=== PATIENT | male | born 1985 | race African-American/Black ===

== ENCOUNTER 2018-11-27 15:45 | Inpatient (IN) | payer OTHER ==
[~2018-11-27] VITALS: Ht 190.5 cm; Wt 76.0 kg
[2018-11-27] MEDS ORDERED: NS 500 ML IV ONE (16:15)
[2018-11-27 16:44] LABS: VENOUS BASE EXCESS -4.3 (-2.0-2.0); VENOUS HCO3 22.2 MEQ/L (23.0-27.0); VENOUS O2 SATURATION 93.7 % (60.0-80.0); VENOUS PARTIAL PRESSURE CO2 45.7 mmHg (38.0-50.0); VENOUS PARTIAL PRESSURE O2 77.7 mmHg (30.0-50.0); VENOUS PH 7.304 UNITS (7.330-7.430); VENOUS STANDARD HCO3 20.9 MEQ/L; VENOUS TOTAL CO2 23.6 MEQ/L (24.0-28.0)
[2018-11-27 16:44] LABS: BASO % 0.1 % (0.0-1.0); EOS % 0.1 % (0.0-3.0); HEMATOCRIT 43.7 % (42.0-52.0); HEMOGLOBIN 15.2 g/dl (13.5-17.5); LYMPH # 1.1 10^3/uL (1.5-4.5); LYMPH % 7.2 % (24.0-44.0); MEAN CORPUSCULAR HEMOGLOBIN 30.8 pg (27.0-33.0); MEAN CORPUSCULAR HGB CONC 34.8 g/dl (32.0-36.5); MEAN CORPUSCULAR VOLUME 88.5 fl (80.0-96.0); MONO # 0.8 10^3/uL (0.0-0.8); MONO % 5.3 % (0.0-5.0); NEUTROPHILS % 86.7 % (36.0-66.0); PLATELET COUNT, AUTOMATED 225 10^3/uL (150-450); RED BLOOD COUNT 4.94 10^6/uL (4.30-6.10)
[2018-11-27] MEDS ORDERED: NS 1,000 ML IV SCH (17:00)
--- NOTE | 2018-11-27 17:06 | REP ---
Chest two views HISTORY: Overdose Comparison: None The lungs are clear. The heart is normal in size. The pulmonary vasculature is normal in appearance. T the bony structure is intact. There is scoliosis of the upper thoracic spine convex to the left and mid and lower thoracic spine convex to the right. convex to the IMPRESSION: No acute disease. Electronically Signed by Cristian Gracia MD 11/27/2018 04:58 P
[2018-11-27] MEDS ORDERED: LORazepam 2 MG/ML VIAL (J2060) IV STA (17:09)
--- NOTE | 2018-11-27 17:14 | REP ---
KUB, ONE VIEW: HISTORY: Drug overdose. Air is present in small and large intestine. There are no air fluid levels or dilated loops of intestine. There is no radiopaque foreign body. IMPRESSION: Nonspecific bowel gas pattern. Electronically Signed by Cristian Gracia MD 11/27/2018 05:27 P
[2018-11-27 17:33] LABS: ACETAMINOPHEN LEVEL < 2.0 UG/ML (10.0-30.0); ALBUMIN 3.8 GM/DL (3.2-5.2); ALT/SGPT 24 U/L (12-78); BILIRUBIN,DIRECT 0.1 MG/DL (0.0-0.2); BILIRUBIN,TOTAL 0.4 MG/DL (0.2-1.0); BLOOD UREA NITROGEN 15 MG/DL (7-18); CALCIUM LEVEL 8.3 MG/DL (8.5-10.1); CARBON DIOXIDE LEVEL 25 MEQ/L (21-32); CHLORIDE LEVEL 109 MEQ/L (98-107); CPK CREATINE PHOSPHOKINASE 409 U/L (39-308); CREATININE FOR GFR 1.46 MG/DL (0.70-1.30); ETHYL ALCOHOL (ETHANOL) < 0.003 % (0.000-0.010); GLOMERULAR FILTRATION RATE > 60.0 (>60); GLUCOSE, FASTING 91 MG/DL (70-100); SALICYLATE LEVEL < 1.7 MG/DL (5.0-30.0); SODIUM LEVEL 143 MEQ/L (136-145); TOTAL PROTEIN 6.5 GM/DL (6.4-8.2)
--- NOTE | 2018-11-27 18:15 | ECGEPIP ---
Stationary ECG Study [facility] - ED Test Date: 2018-11-27 Pat Name: JOE HARRELL Department: Room: - Gender: M [employer] Service Manager: sb : 1985 Requested By: HEENA Bundy Order Number: [id number] Reading MD: Carlos Gleason Measurements Intervals [place] Rate: 84 P: MO: 0 QRS: 34 QRSD: 82 T: 63 QT: 382 QTc: 452 Interpretive Statements REGULAR SUPRAVENTRICULAR RHYTHM WITH ARTIFACT Electronically Signed On 11-27-2018 18:14:57 EST by Carlos Gleason
[2018-11-27] MEDS ORDERED: CHARCOAL ACTIVATED LIQUID 25 GM/120 ML BTL PO ONE (18:30)
[2018-11-27 21:04] LABS: AMPHETAMINES LEVEL URINE NEGATIVE (NEGATIVE); BARBITURATES URINE NEGATIVE (NEGATIVE); BENZODIAZEPINES URINE NEGATIVE (NEGATIVE); CANNABINOIDS URINE NEGATIVE (NEGATIVE); COCAINE METABOLITE URINE NEGATIVE (NEGATIVE); METHADONE URINE NEGATIVE (NEGATIVE); OPIATES URINE NEGATIVE (NEGATIVE); PHENCYCLIDINE URINE NEGATIVE (NEGATIVE)
[2018-11-27 21:10] VITALS: BP 135/74
[2018-11-27] MEDS ORDERED: LORazepam 2 MG/ML VIAL (J2060) IV PRN (22:15)
[2018-11-27] MEDS: NS 1,000 ML IV SCH (23:45)
[2018-11-28] VITALS: BP 132/78
[2018-11-28 04:00] VITALS: BP 138/82
[2018-11-28] MEDS ORDERED: CHARCOAL ACTIVATED LIQUID 25 GM/120 ML BTL PO PRN (05:30)
[2018-11-28] MEDS: CHARCOAL ACTIVATED LIQUID 25 GM/120 ML BTL PO SCH ×3 (06:05→12:56)
[2018-11-28] MEDS: ACETAMINOPHEN TAB 650MG DOSE (2X325MG) PO PRN ×2 (06:05→20:39)
[2018-11-28 06:20] LABS: HEMATOCRIT 41.9 % (42.0-52.0); HEMOGLOBIN 14.3 g/dl (13.5-17.5); MEAN CORPUSCULAR HEMOGLOBIN 30.8 pg (27.0-33.0); MEAN CORPUSCULAR HGB CONC 34.1 g/dl (32.0-36.5); MEAN CORPUSCULAR VOLUME 90.3 fl (80.0-96.0); PLATELET COUNT, AUTOMATED 194 10^3/uL (150-450); RED BLOOD COUNT 4.64 10^6/uL (4.30-6.10); WHITE BLOOD COUNT 7.5 10^3/uL (4.0-10.0)
[2018-11-28 06:49] LABS: BLOOD UREA NITROGEN 10 MG/DL (7-18); CALCIUM LEVEL 7.9 MG/DL (8.5-10.1); CARBON DIOXIDE LEVEL 25 MEQ/L (21-32); CHLORIDE LEVEL 110 MEQ/L (98-107); CREATININE FOR GFR 1.41 MG/DL (0.70-1.30); GLOMERULAR FILTRATION RATE > 60.0 (>60); GLUCOSE, FASTING 77 MG/DL (70-100); POTASSIUM SERUM 3.5 MEQ/L (3.5-5.1); SODIUM LEVEL 141 MEQ/L (136-145)
[2018-11-28 08:00] VITALS: BP 131/75
--- NOTE | 2018-11-28 08:02 | ECGEPIP ---
Stationary ECG Study [facility] - ED Test Date: 2018-11-27 Pat Name: JOE HARRELL Department: Room: [place] [address] Gender: M Cost Engineer: ANKIT : 1985 Requested By: STONEY Lazo Order Number: [id number] Reading MD: Carlos Gleason Measurements Intervals [place] Rate: 79 P: 86 PA: 187 QRS: 37 QRSD: 97 T: 71 QT: 374 QTc: 431 Interpretive Statements SINUS RHYTHM NONSPECIFIC T-WAVE ABNORMALITY BASELINE ARTIFACT AFFECTS INTERPRETATION SIMILAR TO PRIOR ON SAME DATE Electronically Signed On 11-28-2018 8:02:16 EST by Carlos Gleason
[2018-11-28] MEDS: NS 1,000 ML IV SCH ×2 (08:30→22:48)
[2018-11-28] MEDS: ENOXAPARIN 40 MG/0.4 ML SYRINGE (J1650) SC SCH (08:30)
[2018-11-28] MEDS ORDERED: INFLUENZA QUADRIVALENT PF VACCINE 0.5ML SYRINGE (90686) IM ONE (09:00)
--- NOTE | 2018-11-28 09:11 | IPNPDOC ---
Date Seen The patient was seen on 11/28/18. Progress Note SUBJECTIVE: No bowel movement overnight despite q4hrs activated charcoal. Pt lying in bed with 2 correctionals officers in the room. He denies any confusion, headache, changes in vision, restlessness, anxiety, nausea, vomiting, abdominal pain, chest pain, pressure, tightness, lightheadedness, or dizziness. no change in appetite, no dysuria, urgency, frequency, or flank pain. no hematuria. Per poison control, admit for 24hr observation and q4hrs activated charcoal until bowel movement. OBJECTIVE PHYSICAL EXAMINATION: VITAL SIGNS: Please see below. GENERAL: Male appears his stated age. normal affect. no facial asymmetry. speaks in full sentences, in no respiratory distress. lying supine in bed HEENT: no icterus, pallor, cyanosis, PERRL, EOMI no JVD, cervical LAD, or thyromegaly CARDIOVASCULAR: RRR, S1S2, no murmurs noted RESPIRATORY: CTAB AEBE no wheezing rales, or rhonchi. no adventitious breath sounds ABDOMINAL:(+) normoactive bowel sounds, nondistended, nontender, no HSM EXTREMITIES: no cyanosis, clubbing, or pitting edema NEUROLOGICAL: AAOx3, normal fluent speech, no facial asymmetry. no sensory changes. DTRs intact, 5/5 motor function x 4 extremities. negative babinski b/l. normal finger to nose testing. LABORATORY DATA: PLS SEE BELOW IMAGING STUDIES: ASSESSMENT AND PLAN: 33 Y/O inmate from the correctionals facility brought in by ambulance due to suspected intentional overdose of ?K7, s/p activated charcoal q4hrs, admitted as recommended by poison control for 24hrs observation until pt has a bowel movement. Intentional Drug Overdose: per poison control, pt is to beobserved for 24hrs until bowel movement with activated charcoal q4hrs. DVT prophylaxis: ordered Code status: Full code Diet: regular Disposition: psychiatric referral after medically stable. VS, I&O, 24H, Fishbone Vital Signs/I&O Vital Signs Date Time Temp Pulse Resp B/P (MAP) Pulse Ox O2 Delivery O2 Flow Rate FiO2 11/28/18 08:00 99.4 98 18 131/75 (93) 99 11/27/18 20:30 Room Air I&O- Last 24 Hours up to 6 AM 11/28/18 06:00 Intake Total 2280 ml Output Total 650 ml Balance 1630 ml Laboratory Data 24H LABS Laboratory Tests 2 11/27/18 16:31: Lactic Acid Level 4.2*H 11/27/18 16:33: Immature Granulocyte % (Auto) 0.6, White Blood Count 15.0H, Red Blood Count 4. 94, Hemoglobin 15.2, Hematocrit 43.7, Mean Corpuscular Volume 88.5, Mean Corpuscular Hemoglobin 30.8, Mean Corpuscular Hemoglobin Concent 34.8, Red Cell Distribution Width 12.3, Platelet Count 225, Neutrophils (%) (Auto) 86.7H, Lymphocytes (%) (Auto) 7.2L, Monocytes (%) (Auto) 5.3H, Eosinophils (%) (Auto) 0.1, Basophils (%) (Auto) 0.1, Neutrophils # (Auto) 13.0H, Lymphocytes # (Auto) 1.1L, Monocytes # (Auto) 0.8, Eosinophils # (Auto) 0.0, Basophils # (Auto) 0.0, Nucleated Red Blood Cells % (auto) 0.0, Anion Gap 9, Glomerular Filtration Rate > 60.0, Calcium Level 8.3L, Aspartate Amino Transf (AST/SGOT) 21, Alanine Aminotransferase (ALT/SGPT) 24, Alkaline Phosphatase 80, Total Bilirubin 0.4, D irect Bilirubin 0.1, Total Creatine Kinase 409H, Total Protein 6.5, Albumin 3.8, Albumin/Globulin Ratio 1.41, Thyroid Stimulating Hormone (TSH) 3.410, Salicylates Level < 1.7L, Acetaminophen Level < 2.0L, Ethyl Alcohol Level < 0.003 11/27/18 16:36: Blood Gas Bicarbonate Standard 20.9, Venous Blood pH 7.304L, Venous Blood Partial Pressure CO2 45.7, Venous Blood Partial Pressure O2 77.7H, Venous Blood Total Carbon Dioxide 23.6L, Venous Blood HCO3 22.2L, Venous Blood Oxygen Sat uration 93.7H, Venous Blood Base Excess -4.3L 11/27/18 20:30: Urine Amphetamines Screen NEGATIVE, Urine Benzodiazepines Screen NEGATIVE, Urine Opiates Screen NEGATIVE, Urine Methadone Screen NEGATIVE, Urine Barbiturates Screen NEGATIVE, Urine Phencyclidine Screen NEGATIVE, Urine Cocaine Metabolite Screen NEGATIVE, Urine Cannabinoids Screen NEGATIVE 11/27/18 21:51: Lactic Acid Followup at 4 Hours 3.5*H 11/28/18 05:51: Nucleated Red Blood Cells % (auto) 0.0, Anion Gap 6L, Glomerular Filtration Rate > 60.0, Lactic Acid Level 2.1*H, Blood Urea Nitrogen 10, Creatinine 1.41H, Sodium Level 141, Potassium Level 3.5, Chloride Level 110H, Carbon Dioxide Level 25, Calcium Level 7.9L CBC/BMP Laboratory Tests 11/27/18 16:33 Red Blood Count 4.94, Mean Corpuscular Volume 88.5, Mean Corpuscular Hemoglobin 30.8, Mean Corpuscular Hemoglobin Concent 34.8, Red Cell Distribution Width 12.3, Neutrophils (%) (Auto) 86.7 H, Lymphocytes (%) (Auto) 7.2 L, Monocytes (%) (Auto) 5.3 H, Eosinophils (%) (Auto) 0.1, Basophils (%) (Auto) 0.1, Neutrophils # (Auto) 13.0 H, Lymphocytes # (Auto) 1.1 L, Monocytes # (Auto) 0.8, Eosinophils # (Auto) 0.0, Basophils # (Auto) 0.0 11/28/18 05:51 Red Blood Count 4.64, Mean Corpuscular Volume 90.3, Mean Corpuscular Hemoglobin 30.8, Mean Corpuscular Hemoglobin Concent 34.1, Red Cell Distribution Width 12.4, Calcium Level 7.9 L Microbiology Microbiology 11/27/18 Blood Culture, Received Pending 11/27/18 Blood Culture, Received Pending JUDY GRAY MD Nov 28, 2018 09:11
[2018-11-28] MEDS ORDERED: NS 1,000 ML IV ONE ×3 (09:30→21:30)
--- NOTE | 2018-11-28 10:30 | HPE ---
DATE OF ADMISSION: 11/27/2018 ATTENDING PHYSICIAN: Rose Flynn MD CHIEF COMPLAINT: Drug overdose. HISTORY OF PRESENT ILLNESS: The patient is a 33-year-old -[place] male, came from the longterm with drug overdose. History is provided by officer from the longterm, as well as the staff in the emergency room (ER). It seemed like he is suppose to transfer from one longterm to another place. However, when the officer checked him, he was found to have a lot of K2, which synthetic marijuana in his mouth and also he told the officer he swallowed a bunch of them, the K2, so he was brought to the emergency room (ER) here for further management. In the emergency room (ER), his initially work up was not significant. He was given IV hydration, as well as activated charcoal per poison control center. The medicine service called for admission. REVIEW OF SYSTEMS: Not available since does not want to answer questions. PAST MEDICAL HISTORY: None. PAST SURGICAL HISTORY None. MEDICATIONS: None. ALLERGIES: No known drug allergies. FAMILY HISTORY: Noncontributory. SOCIAL HISTORY: He is an active smoker, but does not have any alcohol abuse, but he used marijuana and he is a full code. He does not take med routinely. PHYSICAL EXAMINATION: VITAL SIGNS: Temperature is 98.4, heart rate is 85, respiratory rate 18, blood pressure 135/79, oxygen saturation 100% on room air. GENERAL: He is awake, alert, oriented times 3. He is not in acute distress. HEENT: Atraumatic. Pupils equal, round and reactive to light. No jaundice. Extraocular muscles intact. Ears, nose and throat: Normal. Mouth: Mucosa normal. NECK: No jugular venous distension (JVD). LUNGS: Clear, no wheeze, no crackles. HEART: S1, S2 regular. No murmur. ABDOMEN: Soft. Bowel sounds positive. Nontender. LOWER EXTREMITIES: No edema in bilateral lower extremities. NEUROLOGICAL: Nonfocal. SKIN: No rash. PSYCHOLOGICAL: No acute psychosis. DIAGNOSTIC LABORATORY STUDY INCLUDED THE FOLLOWING: CBC and differential showed WBC)15, hemoglobin and hematocrit 15/43, platelets 225. Sodium is 143, potassium is 4.0, chloride is 109, bicarbonate 25, BUN 15, creatinine 1.46 and glucose is 91. Lactic acid is 4.2. Toxicity screen negative for alcohol, acetaminophen, as well as salicylates. CT of chest, as well as CT abdomen were normal. IMPRESSION: 1. Intentional drug abuse without suicidal attempt. 2. Acute renal injury and dehydration. PLAN: The patient will be admitted to the PCU for observation and will treat him with supportively including IV hydration. Will give him activated charcoal per poison control's recommendation. MTDD
[2018-11-28 12:00] VITALS: BP 157/94
[2018-11-28 13:03] LABS: BLOOD UREA NITROGEN 7 MG/DL (7-18); CALCIUM LEVEL 7.8 MG/DL (8.5-10.1); CARBON DIOXIDE LEVEL 24 MEQ/L (21-32); CHLORIDE LEVEL 111 MEQ/L (98-107); CPK CREATINE PHOSPHOKINASE 2717 U/L (39-308); CREATININE FOR GFR 1.15 MG/DL (0.70-1.30); GLOMERULAR FILTRATION RATE > 60.0 (>60); GLUCOSE, FASTING 92 MG/DL (70-100); POTASSIUM SERUM 3.3 MEQ/L (3.5-5.1); SODIUM LEVEL 143 MEQ/L (136-145)
[2018-11-28] MEDS ORDERED: NS 1,000 ML IV SCH (13:30)
[2018-11-28] MEDS ORDERED: POTASSIUM CHLORIDE 10 MEQ SR TABLET PO ONE ×2 (15:00→21:30)
[2018-11-28 16:00] VITALS: BP 143/85
[2018-11-28 18:58] LABS: BLOOD UREA NITROGEN 6 MG/DL (7-18); CALCIUM LEVEL 7.8 MG/DL (8.5-10.1); CARBON DIOXIDE LEVEL 25 MEQ/L (21-32); CHLORIDE LEVEL 110 MEQ/L (98-107); CPK CREATINE PHOSPHOKINASE 2772 U/L (39-308); CREATININE FOR GFR 1.25 MG/DL (0.70-1.30); GLOMERULAR FILTRATION RATE > 60.0 (>60); GLUCOSE, FASTING 90 MG/DL (70-100); POTASSIUM SERUM 3.4 MEQ/L (3.5-5.1); SODIUM LEVEL 144 MEQ/L (136-145)
[2018-11-28 20:00] VITALS: BP 135/90
[2018-11-29] VITALS (7 sets, daily range): BP systolic 130–141; BP diastolic 78–84
[2018-11-29 00:32] LABS: BLOOD UREA NITROGEN 5 MG/DL (7-18); CALCIUM LEVEL 7.7 MG/DL (8.5-10.1); CARBON DIOXIDE LEVEL 24 MEQ/L (21-32); CHLORIDE LEVEL 111 MEQ/L (98-107); CREATININE FOR GFR 1.04 MG/DL (0.70-1.30); GLOMERULAR FILTRATION RATE > 60.0 (>60); GLUCOSE, FASTING 100 MG/DL (70-100); POTASSIUM SERUM 3.4 MEQ/L (3.5-5.1); SODIUM LEVEL 144 MEQ/L (136-145)
[2018-11-29] MEDS: NS 1,000 ML IV SCH (03:55)
[2018-11-29] MEDS ORDERED: MAG SULF 1GM/100ML (MAG RUN) 1 GM in APPROPRIATE DILUENT 1 EA IV ONE (05:30)
[2018-11-29 07:20] LABS: BLOOD UREA NITROGEN 4 MG/DL (7-18); C REACTIVE PROTEIN QUANTITATIV 1.34 MG/DL (0.00-0.30); CALCIUM LEVEL 7.7 MG/DL (8.5-10.1); CARBON DIOXIDE LEVEL 27 MEQ/L (21-32); CHLORIDE LEVEL 111 MEQ/L (98-107); CPK CREATINE PHOSPHOKINASE 2730 U/L (39-308); CREATININE FOR GFR 1.04 MG/DL (0.70-1.30); GLOMERULAR FILTRATION RATE > 60.0 (>60); GLUCOSE, FASTING 96 MG/DL (70-100); MAGNESIUM LEVEL 1.8 MG/DL (1.8-2.4); POTASSIUM SERUM 3.4 MEQ/L (3.5-5.1); SODIUM LEVEL 144 MEQ/L (136-145)
[2018-11-29] MEDS ORDERED: POTASSIUM CHLORIDE 10 MEQ SR TABLET PO SCH (09:00)
[2018-11-29] MEDS: ENOXAPARIN 40 MG/0.4 ML SYRINGE (J1650) SC SCH ×2 (09:00→09:23)
--- NOTE | 2018-11-29 10:50 | IPNPDOC ---
Date Seen The patient was seen on 11/29/18. Progress Note SUBJECTIVE:Had one bowel movement overnight s/p q4hrs activated charcoal. Pt lying in bed with 2 correctionals officers in the room. He denies any confusion, headache, changes in vision, restlessness, anxiety, nausea, vomiting, abdominal pain, chest pain, pressure, tightness, lightheadedness, or dizziness. no change in appetite, no dysuria, urgency, frequency, or flank pain. no hematuria. Per poison control, admit for 24hr observation and q4hrs activated charcoal until bowel movement and monitor for changes in blood pressure, tremulousness OBJECTIVE PHYSICAL EXAMINATION: VITAL SIGNS: Please see below. GENERAL: Male appears his stated age. normal affect. no facial asymmetry. speaks in full sentences, in no respiratory distress. lying supine in bed HEENT: no icterus, pallor, cyanosis, PERRL, EOMI no JVD, cervical LAD, or thyromegaly CARDIOVASCULAR: RRR, S1S2, no murmurs noted RESPIRATORY: CTAB AEBE no wheezing rales, or rhonchi. no adventitious breath sounds ABDOMINAL:(+) normoactive bowel sounds, nondistended, nontender, no HSM EXTREMITIES: no cyanosis, clubbing, or pitting edema NEUROLOGICAL: AAOx3, normal fluent speech, no facial asymmetry. no sensory saranya nges. DTRs intact, 5/5 motor function x 4 extremities. negative babinski b/l. normal finger to nose testing. LABORATORY DATA: PLS SEE BELOW Toxicity screen negative for alcohol, acetaminophen, as well as salicylates. CT of chest, as well as CT abdomen were normal. ASSESSMENT AND PLAN: The patient is a 33-year-old -Aust[place] male, came from the group home with drug overdose. History is provided by officer from the group home, as well as the staff in the emergency room (ER). It seemed like he is suppose to transfer from one group home to another place. However, when the officer checked him, he was found to have a lot of K2, which synthetic marijuana in his mouth and also he told the officer he swallowed a bunch of them, the K2, so he was brought to the emergency room (ER) here for further management. In the emergency room (ER), his initially work up was not significant. He was given IV hydration, as well as activated charcoal per poison control center. The medicine service called for admission.Per poison control , Drug ingestion was with K2 for synthetic cannabinoids with patient being neurologically stimulated on admission with tremors and fasciculations rx: benzo, ativan, valium, versed. No tachycardia, htn, hypotension, bradycardia. Pt had a tmax of 100.8 overnight. creatinine 1.46-1.4. Intentional Drug Overdose with K2 synthetic marijuana: per poison control, pt is to beobserved for 24hrs until bowel movement with activated charcoal q4hrs. monitoring for changes in blood pressure, tremors. Acute Kidney injury: improved with hydration Rhabdomyolysis: on iv fluids strict i/o serial ck Hypokalemia refused po kdur. iv krun x 3. DVT prophylaxis: ordered Code status: Full code Diet: regular Disposition: psychiatric referral after medically stable. [facility] NAME: GUNNAR HARRELL: 1985MED REC#: [id number] ROOM: [facility]#: [id number]: AP GEORGES MD PATIENT STATUS: ADM INoCosign: REPORT #: [id number] : cc: [~ rep ct ivnm] HISTORY & PHYSICAL EXAMINATIONPrinted:[~ rep prt dt last] [~ rep prt tm last] [employer]Page PAGE \* MERGE[employer] 2 of [employer] \* MERGEFORMAT [address] [place] [address] VS, I&O, 24H, Fishbone Vital Signs/I&O Vital Signs Date Time Temp Pulse Resp B/P (MAP) Pulse Ox O2 Delivery O2 Flow Rate FiO2 11/29/18 04:00 99.3 84 18 135/80 (98) 97 11/27/18 20:30 Room Air I&O- Last 24 Hours up to 6 AM 11/29/18 06:00 Intake Total 7010 ml Output Total 700 ml Balance 6310 ml Laboratory Data 24H LABS Laboratory Tests 2 11/28/18 05:51: Nucleated Red Blood Cells % (auto) 0.0, Anion Gap 6L, Glomerular Filtration Rate > 60.0, Lactic Acid Level 2.1*H, Blood Urea Nitrogen 10, Creatinine 1.41H, Sodiu m Level 141, Potassium Level 3.5, Chloride Level 110H, Carbon Dioxide Level 25, Calcium Level 7.9L 11/28/18 10:22: Lactic Acid Followup at 4 Hours 3.3*H 11/28/18 11:49: Urine Color STRAW, Urine Appearance CLEAR, Urine pH 5.0, Urine Specific [place] 1.012, Urine Protein 1+H, Urine Glucose (UA) NEGATIVE, Urine Ketones NEGATIVE, Urine Blood 1+H, Urine Nitrite NEGATIVE, Urine Bilirubin NEGATIVE, Urine Urobilinogen 0.2, Urine Leukocyte Esterase NEGATIVE, Urine WBC (Auto) 2, Urine RBC (Auto) 4H, Urine Hyaline Casts (Auto) 0, Urine Bacteria (Auto) NEGATIVE, Ur ine Squamous Epithelial Cells 0, Urine Mucus (Auto) SMALL, Urine Sperm (Auto) 11/28/18 12:02: Anion Gap 8, Glomerular Filtration Rate > 60.0, Lactic Acid Level 1.7, Blood Urea Nitrogen 7, Creatinine 1.15, Sodium Level 143, Potassium Level 3.3L, Chloride Level 111H, Carbon Dioxide Level 24, Calcium Level 7.8L, Total Creatine Kinase 2717#H 11/28/18 17:59: Anion Gap 9, Glomerular Filtration Rate > 60.0, Blood Urea Nitrogen 6L, Creatinine 1.25, Sodium Level 144, Potassium Level 3.4L, Chloride Level 110H, Carbon Dioxide Level 25, Calcium Level 7.8L, Total Creatine Kinase 2772H 11/28/18 23:53: Anion Gap 9, Glomerular Filtration Rate > 60.0, Blood Urea Nitrogen 5L, Creatinine 1.04, Sodium Level 144, Potassium Level 3.4L, Chloride Level 111H, Carbon Dioxide Level 24, Calcium Level 7.7L 11/29/18 04:26: CBC/BMP Laboratory Tests 11/28/18 05:51 Red Blood Count 4.64, Mean Corpuscular Volume 90.3, Mean Corpuscular Hemoglobin 30.8, Mean Corpuscular Hemoglobin Concent 34.1, Red Cell Distribution Width 12.4, Calcium Level 7.9 L 11/28/18 12:02 Calcium Level 7.8 L 11/28/18 17:59 Calcium Level 7.8 L 11/28/18 23:53 Calcium Level 7.7 L Microbiology Microbiology 11/27/18 Blood Culture - Preliminary, Resulted No growth after 24 hours . All specim... 2/21/19 Blood Culture - Preliminary, Resulted No growth after 24 hours . All specim... JUDY GRAY MD Nov 29, 2018 05:33
[2018-11-29] MEDS: KCL 10MEQ/100ML SWI (KRUN) 10 MEQ in APPROPRIATE DILUENT 1 EA IV SCH ×3 (11:02→13:05)
[2018-11-29 14:34] LABS: BLOOD UREA NITROGEN 4 MG/DL (7-18); CALCIUM LEVEL 8.3 MG/DL (8.5-10.1); CARBON DIOXIDE LEVEL 24 MEQ/L (21-32); CHLORIDE LEVEL 107 MEQ/L (98-107); CREATININE FOR GFR 1.15 MG/DL (0.70-1.30); GLOMERULAR FILTRATION RATE > 60.0 (>60); GLUCOSE, FASTING 133 MG/DL (70-100); POTASSIUM SERUM 3.6 MEQ/L (3.5-5.1); SODIUM LEVEL 142 MEQ/L (136-145)
[2018-11-29 18:52] LABS: BLOOD UREA NITROGEN 6 MG/DL (7-18); CALCIUM LEVEL 8.2 MG/DL (8.5-10.1); CARBON DIOXIDE LEVEL 25 MEQ/L (21-32); CHLORIDE LEVEL 106 MEQ/L (98-107); CREATININE FOR GFR 1.21 MG/DL (0.70-1.30); GLOMERULAR FILTRATION RATE > 60.0 (>60); GLUCOSE, FASTING 125 MG/DL (70-100); POTASSIUM SERUM 3.4 MEQ/L (3.5-5.1); SODIUM LEVEL 140 MEQ/L (136-145)
[2018-11-29] MEDS: ACETAMINOPHEN TAB 650MG DOSE (2X325MG) PO PRN (21:17)
[2018-11-30 00:36] LABS: BLOOD UREA NITROGEN 6 MG/DL (7-18); CALCIUM LEVEL 8.3 MG/DL (8.5-10.1); CARBON DIOXIDE LEVEL 28 MEQ/L (21-32); CHLORIDE LEVEL 106 MEQ/L (98-107); CREATININE FOR GFR 1.13 MG/DL (0.70-1.30); GLOMERULAR FILTRATION RATE > 60.0 (>60); GLUCOSE, FASTING 91 MG/DL (70-100); POTASSIUM SERUM 3.5 MEQ/L (3.5-5.1); SODIUM LEVEL 141 MEQ/L (136-145)
[2018-11-30 04:00] VITALS: BP 135/85
[2018-11-30 05:41] LABS: HEMATOCRIT 40.9 % (42.0-52.0); HEMOGLOBIN 14.6 g/dl (13.5-17.5); MEAN CORPUSCULAR HEMOGLOBIN 30.8 pg (27.0-33.0); MEAN CORPUSCULAR HGB CONC 35.7 g/dl (32.0-36.5); MEAN CORPUSCULAR VOLUME 86.3 fl (80.0-96.0); PLATELET COUNT, AUTOMATED 211 10^3/uL (150-450); RED BLOOD COUNT 4.74 10^6/uL (4.30-6.10)
[2018-11-30 06:06] LABS: BLOOD UREA NITROGEN 5 MG/DL (7-18); CALCIUM LEVEL 8.1 MG/DL (8.5-10.1); CARBON DIOXIDE LEVEL 28 MEQ/L (21-32); CHLORIDE LEVEL 105 MEQ/L (98-107); GLOMERULAR FILTRATION RATE > 60.0 (>60); GLUCOSE, FASTING 91 MG/DL (70-100); POTASSIUM SERUM 3.5 MEQ/L (3.5-5.1); SODIUM LEVEL 140 MEQ/L (136-145)
[2018-11-30 07:37] LABS: CPK CREATINE PHOSPHOKINASE 2323 U/L (39-308)
[2018-11-30] MEDS ORDERED: NS 1,000 ML IV ONE ×2 (07:45→10:00)
[2018-11-30 08:00] VITALS: BP 133/76
[2018-11-30] MEDS: ENOXAPARIN 40 MG/0.4 ML SYRINGE (J1650) SC SCH (08:47)
--- NOTE | 2018-11-30 09:34 | DS.PDOC ---
Discharge Summary General Date of Admission Nov 29, 2018 at 05:25 Date of Discharge 11/30/18 DISCHARGE TO CORRECTIONAL FACILITY IF CLEARED BY DR. JUDITH RODRIGUES, PSYCHIATRIST Discharge Summary DISCHARGE DIAGNOSES: INTENTIONAL DRUG OVERDOSE WITH SYNTHETIC MARIJUANA K2 ACUTE RHABDOMYOLYSIS ACUTE KIDNEY INJURY DUE TO ACUTE RHABDOMYOLYSIS SUBSTANCE ABUSE WITH MARIJUANA HYPOKALEMIA REFUSED ORAL POTASSIUM MEDICAL NONCOMPLIANCE WITH POTASSIUM SUPPLEMENTS DISCHARGE MEDICATIONS: NONE DISCHARGE INSTRUCTIONS: REFRAIN FROM RECREATIONAL DRUG USE DISPOSITION: FEBRUARY DISCHARGE TO CORRECTIONAL FACILITY IF CLEARED BY PSYCHIATRIST DR. RODRIGUES. HISTORY OF PRESENTING ILLNESS: The patient is a 33-year-old -Greek male, [facility] with [facility] overdose. History is provided by officer from the [facility], as well as the staff in the emergency room (ER). It seemed like he is suppose to transfer from one [facility] to another place. However, when the officer checked him, he was found to have a lot of K2, which synthetic marijuana in his mouth and also he told the officer he swallowed a bunch of them, the K2, so he was brought to the emergency room (ER) here for further management. In the emergency room (ER), his initially work up was not significant. He was given IV hydration, as well as activated charcoal per poison control center. The medicine service called for admission.Per poison control , Drug ingestion was with K2 for synthetic cannabinoids with patient being neurologically stimulated on admission with tremors and fasciculations rx: benzo, ativan, valium, versed. No tachycardia, htn, hypotension, bradycardia. Pt had a tmax of 100.8 overnight. creatinine 1.46-1.4. HOSPITAL COURSE: Intentional Drug Overdose with K2 synthetic marijuana: per poison control, pt is to beobserved for 24hrs until bowel movement with activated charcoal q4hrs. monitoring for changes in blood pressure, tremors. Had one bowel movement 11/29/18 s/p q4hrs activated charcoal. Pt lying in bed with 2 correctionals officers in the room. He denies any confusion, headache, changes in vision, restlessness, anxiety, nausea, vomiting, abdominal pain, chest pain, pressure, tightness, lightheadedness, or dizziness. no change in appetite, no dysuria, urgency, frequency, or flank pain. no hematuria. Per poison control, admit for 24hr observation and q4hrs activated charcoal until bowel movement and monitor for changes in blood pressure, tremulousness Acute Kidney injury: improved with hydration Rhabdomyolysis: on iv fluids strict i/o serial ck Hypokalemia refused po kdur. iv krun x 3. DVT prophylaxis: ordered Code status: Full code Diet: regular DISCHARGE PHYSICAL EXAMINATION: VITAL SIGNS: Please see below. GENERAL: Male appears his stated age. normal affect. no facial asymmetry. speaks in full sentences, in no respiratory distress. lying supine in bed HEENT: no icterus, pallor, cyanosis, PERRL, EOMI no JVD, cervical LAD, or thyromegaly CARDIOVASCULAR: RRR, S1S2, no murmurs noted RESPIRATORY: CTAB AEBE no wheezing rales, or rhonchi. no adventitious breath s ounds ABDOMINAL:(+) normoactive bowel sounds, nondistended, nontender, no HSM EXTREMITIES: no cyanosis, clubbing, or pitting edema NEUROLOGICAL: AAOx3, normal fluent speech, no facial asymmetry. no sensory changes. DTRs intact, 5/5 motor function x 4 extremities. negative babinski b/l. normal finger to nose testing. LABORATORY DATA: PLS SEE BELOW Toxicity screen negative for alcohol, acetaminophen, as well as salicylates. IMAGING STUDIES: Chest two views HISTORY: Overdose Comparison: None The lungs are clear. The heart is normal in size. The pulmonary vasculature is normal in appearance. T the bony structure is intact. There is scoliosis of the upper thoracic spine convex to the left and mid and lower thoracic spine convex to the right. convex to the IMPRESSION: No acute disease. Electronically Signed by Cristian Gracia MD 11/27/2018 04:58 P KUB, ONE VIEW: HISTORY: Drug overdose. Air is present in small and large intestine. There are no air fluid levels or dilated loops of intestine. There is no radiopaque foreign body. IMPRESSION: Nonspecific bowel gas pattern. Electronically Signed by Cristian Gracia MD 11/27/2018 05:27 P Vital Signs/I&Os Vital Signs Date Time Temp Pulse Resp B/P (MAP) Pulse Ox O2 Delivery O2 Flow Rate FiO2 11/30/18 08:00 98.7 18 18 133/76 (95) 99 11/27/18 20:30 Room Air l I&O- Last 24 Hours up to 6 AM 11/30/18 06:00 Intake Total 600 ml Output Total 3880 ml Balance -3280 ml Laboratory Data Labs 24H Laboratory Tests 2 11/29/18 14:04: Anion Gap 11, Glomerular Filtration Rate > 60.0, Blood Urea Nitrogen 4L, Creatinine 1.15, Sodium Level 142, Potassium Level 3.6, Chloride Level 107, Carbon Dioxide Level 24, Calcium Level 8.3L 11/29/18 18:08: Anion Gap 9, Glomerular Filtration Rate > 60.0, Blood Urea Nitrogen 6L, Creatinine 1.21, Sodium Level 140, Potassium Level 3.4L, Chloride Level 106, Carbon Dioxide Level 25, Calcium Level 8.2L 11/29/18 23:46: Anion Gap 7L, Glomerular Filtration Rate > 60.0, Blood Urea Nitrogen 6L, Creatinine 1.13, Sodium Level 141, Potassium Level 3.5, Chloride Level 106, Carbon Dioxide Level 28, Calcium Level 8.3L 11/30/18 05:19: Anion Gap 7L, Glomerular Filtration Rate > 60.0, Blood Urea Nitrogen 5L, Creatinine 1.00, Sodium Level 140, Potassium Level 3.5, Chloride Level 105, Carbon Dioxide Level 28, Calcium Level 8.1L, Nucleated Red Blood Cells % (auto) 0.0, Total Creatine Kinase 2323H CBC/BMP Laboratory Tests 11/29/18 14:04 Calcium Level 8.3 L 11/29/18 18:08 Calcium Level 8.2 L 11/29/18 23:46 Calcium Level 8.3 L 11/30/18 05:19 Calcium Level 8.1 L, Red Blood Count 4.74, Mean Corpuscular Volume 86.3, Mean Corpuscular Hemoglobin 30.8, Mean Corpuscular Hemoglobin Concent 35.7, Red Cell Distribution Width 12.1 Microbiology Microbiology 11/27/18 Blood Culture - Preliminary, Resulted No Growth after 48 hours. All Specime... 11/27/18 Blood Culture - Preliminary, Resulted No Growth after 48 hours. All Specime... Discharge Medications No Active Prescriptions or Reported Meds Allergies Coded Allergies: No Known Allergies (Unverified , 11/27/18) JUDY GRAY MD Nov 30, 2018 09:29
--- NOTE | 2018-11-30 10:29 | MHCRPDOC ---
[facility] Consultation Consultation DATE OF CONSULTATION: 11/30/18 CONSULTATION REQUESTED BY: Dr. Flynn REASON FOR CONSULTATION: AH and SI RELEVANT HISTORY: Per Dr. Flynn "The patient is a 33-year-old -[place] male, came from the assisted with drug overdose. History is provided by officer from the assisted, as well as the staff in the emergency room (ER). It seemed like he is suppose to transfer from one assisted to another place. However, when the officer checked him, he was found to have a lot of K2, which synthetic marijuana in his mouth and also he told the officer he swallowed a bunch of them, the K2, so he was brought to the emergency room (ER) here for further management. In the emergency room (ER), his initially work up was not significant. He was given IV hydration, as well as activated charcoal per poison control center. The [facility] service called for admission.Per poison control , Drug ingestion was with K2 for synthetic cannabinoids with patient being neurologically stimulated on admission with tremors and fasciculations rx: benzo, ativan, valium, versed. No tachycardia, htn, hypotension, bradycardia. Pt had a tmax of 100.8 overnight. creatinine 1.46-1.4. Intentional Drug Overdose with K2 synthetic marijuana: per poison control, pt is to be observed for 24hrs until bowel movement with activated charcoal q4hrs. monitoring for changes in blood pressure, tremors." Pt seen with 2 guards in room and intent on not going back to assisted. Giving answers to questions that are different each time asked and asked in detail, looking up and avoiding eye contact, appearing to make things up as he goes. He is very unreliable. Was able to be very direct in asking what he has to do not go back to assisted such as if he was suicidal and such. Keeps asking to come to psych unit b/c he doesn't want to go back to assisted and very disappointed when told that was unlikely and that he'd be put on suicide watch at assisted for his safety. He appears very impulsive based on history of admission to evade return to assisted. Denies that he's suicidal currently. PAST PSYCHIATRIC HISTORY: denies PAST MEDICAL HISTORY: denies FAMILY HISTORY: noncontributory PERSONAL AND SOCIAL HISTORY: Pt is not reliable due to attempts to deceive Employment: unemployed, incarcerated SUBSTANCE ABUSE HISTORY: He is an active smoker, but does not have any alcohol abuse, but he uses marijuana and K2 LEGAL HISTORY: states incarcerated for drug possession and selling MENTAL STATUS EXAMINATION: Patient is a 33-year old male, who is in hospital gown in bed watched by 2 police officers Speech is reg rate/rhythm/volume Language skills are good Thought processes including: unable to assess as he's attempting to deceive and is stating different things when questioned further appearing to make things up as he goes in hopes to be thought of as psychotic Thought content: unable to assess as he's attempting to deceive and is stating different things when questioned further appearing to make things up as he goes in hopes to be thought of as psychotic. Asking what he has to do to be admitted to the psych unit b/c he doesn't want to go to assisted. Denies SI/HI but asking if he was suicidal could he come to the psych unit. Pt appears to be very impu lsive due to desire to not go to assisted as indicated by reasons for admission. Abstract reasoning, and computation: unable to assess as he's attempting to deceive and is stating different things when questioned further appearing to m tima things up as he goes in hopes to be thought of as psychotic Description of associations: unable to assess as he's attempting to deceive and is stating different things when questioned further appearing to make things up as he goes in hopes to be thought of as psychotic Description of abnormal or psychotic thoughts:doesn't appear to be responding to internal stimuli but making people up that he states are "inside my head" (in schizophrenia most schizophrenics can point to specific directions usually behind them in which they hear a specific voice or voices) Judgment: poor Insight: poor Orientation to x3 Recent and remote memory: good Attention span and concentration: good Language: fair Fund of knowledge: below average Mood: alright Affect: euthymic, calm DIAGNOSIS: 1. Malingering D/O PLAN: 1. d/c pt back to assisted on suicidal watch as denies SI but appears impulsive due to desire to not be in assisted Vital Signs Vital Signs Date Time Temp Pulse Resp B/P (MAP) Pulse Ox O2 Delivery O2 Flow Rate FiO2 11/30/18 08:00 98.7 18 133/76 (95) 99 11/27/18 20:30 Room Air Laboratory Data 24H Labs Laboratory Tests 2 11/29/18 14:04: Anion Gap 11, Glomerular Filtration Rate > 60.0, Blood Urea Nitrogen 4L, Creatinine 1.15, Sodium Level 142, Potassium Level 3.6, Chloride Level 107, Carbon Dioxide Level 24, Calcium Level 8.3L 11/29/18 18:08: Anion Gap 9, Glomerular Filtration Rate > 60.0, Blood Urea Nitrogen 6L, Creatinine 1.21, Sodium Level 140, Potassium Level 3.4L, Chloride Level 106, Carbon Dioxide Level 25, Calcium Level 8.2L 11/29/18 23:46: Anion Gap 7L, Glomerular Filtration Rate > 60.0, Blood Urea Nitrogen 6L, Creatinine 1.13, Sodium Level 141, Potassium Level 3.5, Chloride Level 106, Carbon Dioxide Level 28, Calcium Level 8.3L 11/30/18 05:19: Anion Gap 7L, Glomerular Filtration Rate > 60.0, Blood Urea Nitrogen 5L, Creatinine 1.00, Sodium Level 140, Potassium Level 3.5, Chloride Level 105, Carbon Dioxide Level 28, Calcium Level 8.1L, Nucleated Red Blood Cells % (auto) 0.0, Total Creatine Kinase 2323H Home Medications Current Medications Current Medications Acetaminophen (Tylenol Tab) 650 mg Q8HP PRN PO PAIN / FEVER Last administered on 11/29/18at 21:17; Start 11/28/18 at 05:30 Charcoal (Actidose-Aqua) 25 gm Q4H PO Last administered on 11/28/18at 09:40; Start 11/28/18 at 06:00; Stop 11/28/18 at 14:08; Status DC Charcoal (Actidose-Aqua) 25 gm Q4HP PRN PO BOWEL CARE; Start 11/28/18 at 05:30; Status UNV Enoxaparin Sodium (Lovenox) 40 mg DAILY SC Last administered on 11/28/18at 08:30; Start 11/28/18 at 09:00 Home Med (Med Rec Complete!) ASDIRECTED XX ; Start 11/27/18 at 19:45; Stop 11/27/18 at 19:45; Status DC Lorazepam (Ativan) 2 mg Q8HP PRN IV AGITATION; Start 11/27/18 at 22:15 Lorazepam (Ativan) 2 mg STAT STAT IV Last administered on 11/27/18at 17:15; Start 11/27/18 at 17:09; Stop 11/27/18 at 17:11; Status DC Potassium Chloride 10 meq/ IV Miscellaneous Supplies 100 ml @ 100 mls/hr Q1H IV Last administered on 11/29/18at 13:05; Start 11/29/18 at 11:00; Stop 11/29/18 at 13:59; Status DC Potassium Chloride (Micro-K Extencaps) 40 meq DAILY PO ; Start 11/29/18 at 09:00; Stop 11/29/18 at 10:47; Status DC Sodium Chloride 1,000 ml @ 100 mls/hr Q10H IV Last administered on 11/28/18at 08:30; Start 11/27/18 at 20:02; Stop 11/28/18 at 09:22; Status DC Sodium Chloride 1,000 ml @ 100 mls/hr Q10H IV Last administered on 11/28/18at 13:08; Start 11/28/18 at 13:30; Stop 11/28/18 at 21:27; Status DC Sodium Chloride 1,000 ml @ 150 mls/hr Q6H40M IV Last administered on 11/27/18at 17:00; Start 11/27/18 at 17:00; Stop 11/27/18 at 22:05; Status DC Sodium Chloride 1,000 ml @ 200 mls/hr Q5H IV Last administered on 11/29/18at 03:55; Start 11/28/18 at 22:30; Stop 11/29/18 at 08:29; Status DC No Active Prescriptions or Reported Meds Allergies Coded Allergies: No Known Allergies (Unverified , 11/27/18) JUDITH RODRIGUES DO Nov 30, 2018 09:50
[2018-11-30 12:34] LABS: BLOOD UREA NITROGEN 6 MG/DL (7-18); CALCIUM LEVEL 8.1 MG/DL (8.5-10.1); CARBON DIOXIDE LEVEL 28 MEQ/L (21-32); CHLORIDE LEVEL 108 MEQ/L (98-107); CREATININE FOR GFR 0.99 MG/DL (0.70-1.30); GLOMERULAR FILTRATION RATE > 60.0 (>60); GLUCOSE, FASTING 89 MG/DL (70-100); POTASSIUM SERUM 3.8 MEQ/L (3.5-5.1); SODIUM LEVEL 143 MEQ/L (136-145)
== END 2018-11-30 14:56 | DRG 812 ==
LOC: EDBD 15:45 → M ED 15:45 → EDSEX 15:45 → M ED INP 20:02 → M PCU 21:08 → OBSVTOIN 11-29 05:25
PROVIDERS: ADMIT Hospitalist; ATTEND General Practice
DX: T40.7X1A Poisoning by cannabis (derivatives), accidental (unintentional), initial encounter (principal); N17.9 Acute kidney failure, unspecified; M62.82 Rhabdomyolysis; E87.6 Hypokalemia; F17.200 Nicotine dependence, unspecified, uncomplicated; E86.0 Dehydration; Z76.5 Malingerer [conscious simulation]